=== PATIENT | male | born 1955 | race Caucasian/White ===

== ENCOUNTER 2021-02-22 13:26 | Outpatient (CLI) | payer MEDICARE, BC ==
[~2021-02-22 13:26] MED LIST: Magnevist 469MG/ML 20 ML VIAL ONE
== END 2021-02-22 13:27 | disposition home or self-care (01) ==
LOC: TBSIIMAG 13:26
PROVIDERS: ATTEND Radiology Radiation Oncology
DX: C61 Malignant neoplasm of prostate (principal); K63.9 Disease of intestine, unspecified
CPT/HCPCS: 72197; 82565; A9579

== ENCOUNTER 2021-08-03 14:17 | Outpatient (CLI) | payer MEDICARE, BC ==
[~2021-08-03 14:17] MED LIST changes: +Iopamidol 370 76% 50 ML VIAL FS ONE; +Iopamidol-370 76% 500 ML 1 ML ONE; -Magnevist 469MG/ML 20 ML VIAL ONE
== END 2021-08-03 14:18 | disposition home or self-care (01) ==
LOC: CT 14:17
PROVIDERS: ATTEND Internal Medicine Gastroenterology
DX: K57.92 Diverticulitis of intestine, part unspecified, without perforation or abscess without bleeding (principal); K63.89 Other specified diseases of intestine; N32.89 Other specified disorders of bladder; K57.30 Diverticulosis of large intestine without perforation or abscess without bleeding; N28.1 Cyst of kidney, acquired; K76.89 Other specified diseases of liver
CPT/HCPCS: 74177; Q9967

== ENCOUNTER 2021-08-05 13:19 | Inpatient (IN) | payer MEDICARE, BC ==
[2021-08-05 15:28] VITALS: BMI 27.4
[2021-08-05] MEDS ORDERED: Piperacillin/Tazobactam 4.5 GM in Sodium Chloride 0.9% 100 ML IVPB SCH (15:30)
[2021-08-05] MEDS ORDERED: Ondansetron PF 4 MG/2 ML Vial IVP PRN (15:31)
[2021-08-05] MEDS ORDERED: Acetaminophen 325 MG TAB PO PRN (15:31)
[2021-08-05] MEDS ORDERED: Piperacillin/Tazobactam 3.375 GM in Sodium Chloride 0.9% 100 ML IVPB SCH (16:00)
[2021-08-05] MEDS: Sodium Chloride 0.9% 1,000 ML IV SCH (16:07)
[2021-08-05 16:37] LABS: #Eosinphils 0.1 thou/uL (0.0-0.7); #Lymphocytes 0.9 thou/uL (1.20-3.40); #Monocytes 0.7 thou/uL (0.11-0.59); #Neutrophils 5.3 thou/uL (1.40-6.50); %Basophils 0.3 % (0.0-1.0); %Eosinophils 1.1 % (0.0-10.0); %Lymphocytes 13.1 % (21.0-51.0); %Monocytes 9.5 % (0.0-10.0); Hemoglobin 12.8 g/dL (14.0-18.0); Mean Corpuscular HGB CONC 33.5 g/dL (32.0-36.0); Mean Corpuscular Hemoglobin 32.5 pg (27.0-31.0); Mean Corpuscular Volume 97.2 fL (78.0-98.0); Mean Platelet Volume 5.4 fL (7.4-10.4); Platelet Count 306 thou/uL (130-400); RBC Distribution Width 12.4 % (11.5-14.5); Red Blood Cell (RBC) Count 3.92 mill/uL (4.70-6.10)
[2021-08-05] MEDS ORDERED: Famotidine 20 MG TAB PO PRN (16:53)
[2021-08-05 16:58] LABS: ALT (SGPT) 18 U/L (8-55); AST (SGOT) 17 U/L (5-34); Albumin 3.5 g/dL (3.4-4.8); Alkaline Phosphatase 51 U/L (40-110); Anion Gap 12 mmol/L (10-20); BUN (Urea Nitrogen) 13 mg/dL (8.4-25.7); Bilirubin, Total 0.5 mg/dL (0.2-1.2); Calc. Creatinine Clearance 123 mL/min (70-130); Calcium 9.2 mg/dL (7.8-10.44); Carbon Dioxide 29 mmol/L (23-31); Chloride 98 mmol/L (98-107); Glucose 89 mg/dL (80-115); Potassium 3.3 mmol/L (3.5-5.1); Protein, Total 6.5 g/dL (5.8-8.1); Sodium 136 mmol/L (136-145)
[2021-08-05] MEDS: Carvedilol 6.25 MG TAB PO SCH (19:56)
[2021-08-05] MEDS: Finasteride 5 MG TAB PO SCH (19:57)
[2021-08-05] MEDS: Tamsulosin HCl 0.4 MG CAP PO SCH (19:59)
[2021-08-05] MEDS: Piperacillin/Tazobactam 3.375 GM in Sodium Chloride 0.9% 100 ML IVPB SCH (20:39)
[2021-08-06] MEDS: Sodium Chloride 0.9% 1,000 ML IV SCH ×3 (03:08→14:48)
[2021-08-06] MEDS: Piperacillin/Tazobactam 3.375 GM in Sodium Chloride 0.9% 100 ML IVPB SCH ×3 (04:59→20:33)
[2021-08-06 06:35] LABS: #Eosinphils 0.1 thou/uL (0.0-0.7); #Lymphocytes 0.8 thou/uL (1.20-3.40); #Monocytes 0.6 thou/uL (0.11-0.59); %Basophils 0.3 % (0.0-1.0); %Lymphocytes 16.8 % (21.0-51.0); %Monocytes 13.3 % (0.0-10.0); %Neutrophils 66.6 % (42.0-75.0); Hemoglobin 12.2 g/dL (14.0-18.0); Mean Corpuscular HGB CONC 33.6 g/dL (32.0-36.0); Mean Corpuscular Hemoglobin 32.8 pg (27.0-31.0); Mean Corpuscular Volume 97.6 fL (78.0-98.0); Mean Platelet Volume 5.4 fL (7.4-10.4); Platelet Count 296 thou/uL (130-400); RBC Distribution Width 12.4 % (11.5-14.5); Red Blood Cell (RBC) Count 3.74 mill/uL (4.70-6.10); White Blood Cell (WBC) Count 4.5 thou/uL (4.8-10.8)
[2021-08-06 07:04] LABS: Anion Gap 12 mmol/L (10-20); BUN (Urea Nitrogen) 9 mg/dL (8.4-25.7); Calc. Creatinine Clearance 126 mL/min (70-130); Calcium 8.9 mg/dL (7.8-10.44); Carbon Dioxide 27 mmol/L (23-31); Chloride 104 mmol/L (98-107); Glucose 92 mg/dL (80-115); Potassium 3.5 mmol/L (3.5-5.1); Sodium 139 mmol/L (136-145)
[2021-08-06] MEDS: Carvedilol 6.25 MG TAB PO SCH ×2 (08:09→20:33)
[2021-08-06] MEDS: Hydrochlorothiazide 25 MG TAB PO SCH (08:09)
[2021-08-06] MEDS: Losartan 25 MG TAB PO SCH (08:09)
[2021-08-06] MEDS: Enoxaparin Sodium 40 MG/0.4 ML SYRINGE SC SCH (08:09)
[2021-08-06] MEDS: Rosuvastatin 5 MG TAB PO SCH (08:13)
[2021-08-06] MEDS ORDERED: Acetaminophen 500 MG TAB PO PRN (14:19)
[2021-08-06 15:38] LABS: SARS-CoV-2 PCR by NAA Not Detected (NotDetected)
[2021-08-06] MEDS: Finasteride 5 MG TAB PO SCH (20:33)
[2021-08-06] MEDS: Tamsulosin HCl 0.4 MG CAP PO SCH (20:34)
[2021-08-07] MEDS: Sodium Chloride 0.9% 1,000 ML IV SCH ×2 (03:24→11:18)
[2021-08-07] MEDS: Piperacillin/Tazobactam 3.375 GM in Sodium Chloride 0.9% 100 ML IVPB SCH ×3 (04:01→20:21)
[2021-08-07 06:30] LABS: #Eosinphils 0.1 thou/uL (0.0-0.7); #Lymphocytes 0.8 thou/uL (1.20-3.40); #Monocytes 0.6 thou/uL (0.11-0.59); #Neutrophils 2.6 thou/uL (1.40-6.50); %Basophils 0.6 % (0.0-1.0); %Eosinophils 3.4 % (0.0-10.0); %Lymphocytes 19.1 % (21.0-51.0); %Monocytes 13.4 % (0.0-10.0); %Neutrophils 63.5 % (42.0-75.0); Hemoglobin 12.2 g/dL (14.0-18.0); Mean Corpuscular Hemoglobin 32.3 pg (27.0-31.0); Mean Corpuscular Volume 97.8 fL (78.0-98.0); Mean Platelet Volume 5.4 fL (7.4-10.4); Platelet Count 328 thou/uL (130-400); RBC Distribution Width 12.2 % (11.5-14.5); Red Blood Cell (RBC) Count 3.76 mill/uL (4.70-6.10); White Blood Cell (WBC) Count 4.2 thou/uL (4.8-10.8)
[2021-08-07 06:50] LABS: Anion Gap 10 mmol/L (10-20); BUN (Urea Nitrogen) 6 mg/dL (8.4-25.7); Calc. Creatinine Clearance 115 mL/min (70-130); Calcium 8.9 mg/dL (7.8-10.44); Carbon Dioxide 29 mmol/L (23-31); Chloride 105 mmol/L (98-107); Glucose 98 mg/dL (80-115); Potassium 3.7 mmol/L (3.5-5.1); Sodium 140 mmol/L (136-145)
[2021-08-07 07:14] LABS: Thyroid Stimulating Hormone 1.4959 uIU/mL (0.35-4.94)
[2021-08-07] MEDS: Hydrochlorothiazide 25 MG TAB PO SCH (08:04)
[2021-08-07] MEDS: Rosuvastatin 5 MG TAB PO SCH (08:05)
[2021-08-07] MEDS: Enoxaparin Sodium 40 MG/0.4 ML SYRINGE SC SCH (08:05)
[2021-08-07] MEDS: Carvedilol 6.25 MG TAB PO SCH ×2 (08:05→20:22)
[2021-08-07] MEDS: Losartan 25 MG TAB PO SCH (08:05)
[2021-08-07] MEDS ORDERED: Sodium Chloride 0.9% 1,000 ML IV SCH (18:22)
[2021-08-07] MEDS: Finasteride 5 MG TAB PO SCH (20:22)
[2021-08-07] MEDS: Tamsulosin HCl 0.4 MG CAP PO SCH (20:22)
[2021-08-08] MEDS: Piperacillin/Tazobactam 3.375 GM in Sodium Chloride 0.9% 100 ML IVPB SCH ×2 (04:00→11:26)
[2021-08-08] MEDS: Carvedilol 6.25 MG TAB PO SCH (08:17)
[2021-08-08] MEDS: Enoxaparin Sodium 40 MG/0.4 ML SYRINGE SC SCH (08:17)
[2021-08-08] MEDS: Rosuvastatin 5 MG TAB PO SCH (08:18)
[2021-08-08] MEDS: Hydrochlorothiazide 25 MG TAB PO SCH (08:18)
[2021-08-08] MEDS: Losartan 25 MG TAB PO SCH (08:18)
[2021-08-08 15:47] VITALS: BP 147/93; TEMP 97.6
== END 2021-08-08 15:53 | disposition home or self-care (01) | DRG 392 ==
LOC: T4-A 13:19
PROVIDERS: ADMIT Internal Medicine; ATTEND Internal Medicine
DX: K57.32 Diverticulitis of large intestine without perforation or abscess without bleeding (principal); Z20.822 Contact with and (suspected) exposure to COVID-19; I10 Essential (primary) hypertension; M19.90 Unspecified osteoarthritis, unspecified site; N40.0 Benign prostatic hyperplasia without lower urinary tract symptoms; E78.5 Hyperlipidemia, unspecified; N28.1 Cyst of kidney, acquired; K76.89 Other specified diseases of liver; G47.33 Obstructive sleep apnea (adult) (pediatric); K21.9 Gastro-esophageal reflux disease without esophagitis; D64.9 Anemia, unspecified; Z79.899 Other long term (current) drug therapy; Z85.46 Personal history of malignant neoplasm of prostate; Z90.49 Acquired absence of other specified parts of digestive tract; Z92.3 Personal history of irradiation; K63.89 Other specified diseases of intestine; N32.89 Other specified disorders of bladder; K57.30 Diverticulosis of large intestine without perforation or abscess without bleeding
CPT/HCPCS: 36415; 74177; 80048; 80053; 81001; 82607; 82746; 84443; 85025; 87086; J1650; J2543; J3490; J7050; Q9967; U0003; U0005

== ENCOUNTER 2022-03-01 14:14 | Outpatient (CLI) | payer MEDICARE, BC | END 2022-03-01 14:15 | disposition home or self-care (01) | LOC: TBSIIMAG 14:14 | PROVIDERS: ATTEND Physician Assistant | DX: S32.019D Unspecified fracture of first lumbar vertebra, subsequent encounter for fracture with routine healing (principal); S22.089A Unspecified fracture of T11-T12 vertebra, initial encounter for closed fracture | CPT/HCPCS: 72100 ==

== ENCOUNTER 2022-04-19 11:09 | Outpatient (CLI) | payer MEDICARE, BC | END 2022-04-19 11:10 | disposition home or self-care (01) | LOC: TBSIIMAG 11:09 | PROVIDERS: ATTEND Neurological Surgery | DX: Z00.00 Encounter for general adult medical examination without abnormal findings (principal); G95.20 Unspecified cord compression | CPT/HCPCS: 72072; 72100 ==

== ENCOUNTER 2022-07-14 13:54 | Outpatient (CLI) | payer MEDICARE, BC ==
[2022-07-14 15:38] LABS: #Basophils 0.1 10x3/uL (0.0-0.2); #Eosinphils 0.2 10x3/uL (0.0-0.5); #Monocytes 0.5 10x3/uL (0.0-1.1); #Neutrophils 3.3 10x3/uL (1.5-8.4); %Basophils 0.9 % (0.0-2.0); %Eosinophils 3.7 % (0.0-6.0); %Monocytes 8.7 % (0.0-10.0); %Neutrophils 57.5 % (40.0-75.0); Hemoglobin 13.7 g/dL (13.5-17.5); Mean Corpuscular Volume 91.2 fl (81.2-95.1); Mean Platelet Volume 8.9 fl (7.4-10.4); Platelet Count 244 10x3/uL (150-450); RBC Distribution Width 16.6 % (11.5-14.5); Red Blood Cell (RBC) Count 4.42 10x6/uL (4.32-5.72); White Blood Cell (WBC) Count 5.7 10x3/uL (3.5-10.5)
[2022-07-14 15:57] LABS: Anion Gap 15 mmol/L (10-20); BUN (Urea Nitrogen) 20 mg/dL (8.4-25.7); Calc. Creatinine Clearance 0 mL/min (70-130); Calcium 9.3 mg/dL (7.8-10.44); Carbon Dioxide 26 mmol/L (23-31); Chloride 105 mmol/L (98-107); Estimated GFR 70; Glucose 100 mg/dL (80-115); Potassium 4.3 mmol/L (3.5-5.1); Sodium 142 mmol/L (136-145)
== END 2022-07-14 13:55 | disposition home or self-care (01) ==
LOC: LABBT 13:54
PROVIDERS: ATTEND Orthopaedic Surgery Hand Surgery
DX: Z01.818 Encounter for other preprocedural examination (principal); M19.041 Primary osteoarthritis, right hand
CPT/HCPCS: 80048; 85025; 93005; 93010

== ENCOUNTER 2022-07-18 08:17 | Day surgery (SDC) | payer MEDICARE, BC ==
[2022-07-17 14:46] VITALS: BMI 26.7
[2022-07-18] MEDS ORDERED: Bupivacaine PF 0.5% 30 ML VIAL ONE (11:17)
[2022-07-18] MEDS ORDERED: Thrombin 5000 UNITS/5 ML VIAL ONE (11:18)
[2022-07-18] MEDS ORDERED: Bacitracin Zinc Ointment 30 gm TUBE ONE (11:18)
[2022-07-18] MEDS ORDERED: Neomycin-Polymyxin 1 ML AMP ONE (11:18)
[2022-07-18] MEDS ORDERED: fentaNYL PF 100 MCG/2 ML SYRINGE ONE ×2 (12:01→15:13)
[2022-07-18] MEDS ORDERED: CEFAZOLIN 2 GM VIAL ONE (12:07)
[2022-07-18] MEDS ORDERED: Sodium Chloride 0.9% 100 ML ONE (12:07)
[2022-07-18] MEDS ORDERED: Ondansetron PF 4 MG/2 ML Vial ONE (12:20)
[2022-07-18] MEDS ORDERED: PROPOFOL 200 MG/20 ML VIAL ONE (12:20)
[2022-07-18] MEDS ORDERED: Ketorolac Tromethamine 30 MG/ML VIAL ONE (12:20)
[2022-07-18] MEDS ORDERED: Dexamethasone 20 MG/5 ML VIAL ONE (12:20)
[2022-07-18] MEDS ORDERED: ePHEDrine 50 MG/ML VIAL ONE (12:20)
== END 2022-07-18 17:27 | disposition home or self-care (01) ==
LOC: SDC 08:17
PROVIDERS: ATTEND Orthopaedic Surgery Hand Surgery
PROC: 0RU Upper Joints, Supplement (ICD-10-PCS; principal; 2022-07-18)
PROC: 0RU Upper Joints, Supplement (ICD-10-PCS; 2022-07-18)
DX: M15.2 Bouchard's nodes (with arthropathy) (principal); M24.542 Contracture, left hand; I10 Essential (primary) hypertension; Z85.46 Personal history of malignant neoplasm of prostate; Z79.899 Other long term (current) drug therapy; Z90.49 Acquired absence of other specified parts of digestive tract
CPT/HCPCS: 26536 ×2; 73140; C1776; C1894; J1100; J1885; J2405; J2704; J3490; S0020